=== PATIENT | male | born 1930 ===

== ENCOUNTER 2020-01-24 08:51 | Inpatient (IN) | payer MEDICARE ==
[2020-01-24 20:51] LABS: Hematocrit 29.2 % (35.5-45.6); Hemoglobin 9.9 gm/dl (11.8-15.2); Mean Corpuscular HGB Conc 34 % (32-34); Mean Corpuscular Volume 104 fl (84-94); Platelet Count 273 K/mm3 (140-440); Red Blood Count 2.82 M/mm3 (3.65-5.03); Red Cell Distribution Width 19.8 % (13.2-15.2)
[2020-01-24 21:06] LABS: Alanine Aminotransferase 11 units/L (7-56); Albumin 3.1 g/dL (3.9-5); BUN/Creatinine Ratio 23; Blood Urea Nitrogen 21 mg/dL (9-20); Calcium 8.6 mg/dL (8.4-10.2); Chol/HDL Ratio 2.26 %; HDL Cholesterol 42 mg/dL (40-59); Hemolysis Index 4; LDL Cholesterol,Direct 38 mg/dL (50-130)
[2020-01-24] MEDS: traZODone 50 MG TAB PO SCH (21:30)
[2020-01-24 23:13] LABS: Anisocytosis 1+; Band Neutrophils # (Manual) 0.1 K/mm3; Basophils % (Manual) 0 % (0.0-1.8); Platelet Estimate Consistent w Auto; Total Cells Counted 100
--- NOTE | 2020-01-25 08:29 | History and Physical Report ---
GP History & Physical - History of Present Illness Date of admission: 01/24/20 Date of Examination: 01/25/20 Reason for Admission: Danger to self History of Present Illness: Juan R Yates is an 89 y/o male patient who states he was admitted from [facility]. The patient is lying in bed awake. The patient is confused. He is pleasant. He doesn't seem forthcoming at times. He states to me, "I don't feel good. I broke my hip." He then says, "I'm in constant pain." When asking the patient did he know why he was here, he states, "well, I was in [facility] and they told me I needed to come here for a couple of days." When asking the patient was he suicid al now or at time of admit, he states, "I was making a joke about suicide. I was being funny." The then says, "but I guess nobody laughed." He denies past suicide attempts or ever seeing a psychiatrist. He denies feeling depressed at present. The patient also denies hallucinations, stating, "no, I don't hallucinate. I'm a realist." The patient denies any illicit drug use or nicotine use. He says he drinks "a beer every three weeks," although the nurse note states the patient admitted to being an alcoholic. Reason for continued inpatient treatment: Although denies, the patient expressed suicidal thoughts upon admission. Will continue to monitor the patient's progress and response to medication, to ensue a safe discharge. PAST PSYCHIATRIC HISTORY Diagnoses: Denies Suicide attempts or Self-harm behavior: Denies Prior psychiatric hospitalizations: Denies Substance Abuse history: Denies Previous psychiatric medications tried: Denies Outpatient treatment: Denies PAST MEDICAL HISTORY: unknown Family Psychiatric History: None reported or documented SOCIAL HISTORY Marital Status: Living Arrangements: With son Employment Status: Retired Access to guns/weapons: Denies Education: High school History of Abuse: Denies Legal History: Denies REVIEW OF SYSTEMS Constitutional: Negative for weight loss ENT: Negative for stridor Respiratory: Negative for cough or hemoptysis All other systems reviewed and are negative MENTAL STATUS EXAMINATION General Appearance: Dressed appropriately Behavior: calm, cooperative. Good eye contact. 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 Patient will be enrolled in individual and group therapeutic sessions and encouraged to attend. Patient will be provided with a safe and structured environment. Patient's physical health needs will be addressed by the Hospitalist. Hospitalist Consulted Labs including CBC, CMP, Lipid profile and Hemoglobin A1C ordered Social Assessment will be completed and the Construction Materials Tester will work with patient and family to ensure a suitable and safe disposition Medication adjustment will be made as clinically indicated - CIWA initiated - Zoloft 25mg po daily Usual Wellness Yazidi/Preservation: -Trazodone 50mg po qhs -Melatonin 5mg po qhs prn insomnia -Home meds restarted This certifies that Juan R Yates is an 89y/o male patient who was admitted for Major Depressive Disorder and will be treated for depression and suicidal ideation. The patient agreed on the treatment plan, understood the risk, benefit, alternative treatment, potential consequence of no treatment, and gave informed consent. Estimated period of time patient will need to remain in the hospital: [4] Plan for post-hospital care: [outpatient] Legal Status: Voluntary Reaction to Hospitalization: Accepting Medications and Allergies Allergies Allergy/AdvReac Type Severity Reaction Status Date / Time acetaminophen [From Tylenol] Allergy Unknown Verified 01/24/20 09:57 NSAIDS (Non-Steroidal Allergy Unknown Verified 01/24/20 09:58 Anti-Inflamma tramadol Allergy Unknown Verified 01/24/20 09:58 duloxetine [From Cymbalta] AdvReac Unknown Unverified 01/24/20 10:00 ezetimibe [From Zetia] AdvReac Unknown Unverified 01/24/20 10:00 gabapentin AdvReac Unknown Unverified 01/24/20 10:00 morphine AdvReac Unknown Unverified 01/24/20 10:00 simvastatin [From Zocor] AdvReac Unknown Unverified 01/24/20 10:00 Uyvwkyn-Iwq-Irm Reductase AdvReac Unknown Unverified 01/24/20 10:00 Inhibitor Home Medications Medication Instructions Recorded Confirmed Last Taken Type Dronabinol 7 drops PO Q4HR PRN 01/24/20 01/24/20 Unknown History LORazepam 1 mg PO Q4HR PRN 01/24/20 01/24/20 Unknown History Losartan/Hydrochlorothiazide 25 - 100 mg PO DAILY 01/24/20 01/24/20 Unknown History Metoprolol 50 mg PO DAILY 01/24/20 01/24/20 Unknown History Oxycodone 10 mg PO Q4HR PRN 01/24/20 01/24/20 Unknown History fentaNYL [Duragesic] 25 mcg TRANSDERMA Q24HR 01/24/20 01/24/20 01/23/20 History Active Meds: Active Medications Melatonin (Melatonin) 5 mg PO QHS PRN PRN Reason: Sleep Trazodone HCl (Desyrel) 50 mg PO QHS CARIN Last Admin: 01/24/20 21:30 Dose: 50 mg Documented by: Results - Results Labs/Vitals: Laboratory Last Values WBC 3.4 K/mm3 (4.5-11.0) L 01/24/20 20:44 RBC 2.82 M/mm3 (3.65-5.03) L 01/24/20 20:44 Hgb 9.9 gm/dl (11.8-15.2) L 01/24/20 20:44 Hct 29.2 % (35.5-45.6) L 01/24/20 20:44 MCV 104 fl (84-94) H 01/24/20 20:44 MCH 35 pg (28-32) H 01/24/20 20:44 MCHC 34 % (32-34) 01/24/20 20:44 RDW 19.8 % (13.2-15.2) H 01/24/20 20:44 Plt Count 273 K/mm3 (140-440) 01/24/20 20:44 [place] % (Auto) Trumpet Player 01/24/20 20:44 Add Manual Diff Complete 01/24/20 20:44 Total Counted 100 01/24/20 20:44 Seg Neuts % (Manual) 65.0 % (40.0-70.0) 01/24/20 20:44 Band Neutrophils % 2.0 % 01/24/20 20:44 Lymphocytes % (Manual) 20.0 % (13.4-35.0) 01/24/20 20:44 Reactive Lymphs % (Man) 0 % 01/24/20 20:44 Monocytes % (Manual) 10.0 % (0.0-7.3) H 01/24/20 20:44 Eosinophils % (Manual) 3.0 % (0.0-4.3) 01/24/20 20:44 Basophils % (Manual) 0 % (0.0-1.8) 01/24/20 20:44 Metamyelocytes % 0 % 01/24/20 20:44 Myelocytes % 0 % 01/24/20 20:44 Promyelocytes % 0 % 01/24/20 20:44 Blast Cells % 0 % 01/24/20 20:44 Nucleated RBC % Not Reportable 01/24/20 20:44 Seg Neutrophils # Man 2.2 K/mm3 (1.8-7.7) 01/24/20 20:44 Band Neutrophils # 0.1 K/mm3 01/24/20 20:44 Lymphocytes # (Manual) 0.7 K/mm3 (1.2-5.4) L 01/24/20 20:44 Abs React Lymphs (Man) 0.0 K/mm3 01/24/20 20:44 Monocytes # (Manual) 0.3 K/mm3 (0.0-0.8) 01/24/20 20:44 Eosinophils # (Manual) 0.1 K/mm3 (0.0-0.4) 01/24/20 20:44 Basophils # (Manual) 0.0 K/mm3 (0.0-0.1) 01/24/20 20:44 Metamyelocytes # 0.0 K/mm3 01/24/20 20:44 Myelocytes # 0.0 K/mm3 01/24/20 20:44 Promyelocytes # 0.0 K/mm3 01/24/20 20:44 Blast Cells # 0.0 K/mm3 01/24/20 20:44 WBC Morphology Not Reportable 01/24/20 20:44 Hypersegmented Neuts Not Reportable 01/24/20 20:44 Hyposegmented Neuts Not Reportable 01/24/20 20:44 Hypogranular Neuts Not Reportable 01/24/20 20:44 Smudge Cells Not Reportable 01/24/20 20:44 Toxic Granulation Not Reportable 01/24/20 20:44 Toxic Vacuolation Not Reportable 01/24/20 20:44 Dohle Bodies Not Reportable 01/24/20 20:44 Pelger-Huet Anomaly Not Reportable 01/24/20 20:44 Monika Rods Not Reportable 01/24/20 20:44 Platelet Estimate Consistent w auto 01/24/20 20:44 Clumped Platelets Not Reportable 01/24/20 20:44 Plt Clumps, EDTA Not Reportable 01/24/20 20:44 Large Platelets Not Reportable 01/24/20 20:44 Giant Platelets Not Reportable 01/24/20 20:44 Platelet Satelliting Not Reportable 01/24/20 20:44 Plt Morphology Comment Not Reportable 01/24/20 20:44 RBC Morphology Not Reportable 01/24/20 20:44 Dimorphic RBCs Not Reportable 01/24/20 20:44 Polychromasia Not Reportable 01/24/20 20:44 Hypochromasia Not Reportable 01/24/20 20:44 Poikilocytosis Not Reportable 01/24/20 20:44 Anisocytosis 1+ 01/24/20 20:44 Microcytosis Not Reportable 01/24/20 20:44 Macrocytosis Not Reportable 01/24/20 20:44 Spherocytes Not Reportable 01/24/20 20:44 Pappenheimer Bodies Not Reportable 01/24/20 20:44 Sickle Cells Not Reportable 01/24/20 20:44 Target Cells Not Reportable 01/24/20 20:44 Tear Drop Cells Not Reportable 01/24/20 20:44 Ovalocytes Not Reportable 01/24/20 20:44 Helmet Cells Not Reportable 01/24/20 20:44 [place] Bodies Not Reportable 01/24/20 20:44 [place] Rings Not Reportable 01/24/20 20:44 [place] Cells Not Reportable 01/24/20 20:44 Bite Cells Not Reportable 01/24/20 20:44 Crenated Cell Not Reportable 01/24/20 20:44 Elliptocytes Not Reportable 01/24/20 20:44 Acanthocytes (Spur) Not Reportable 01/24/20 20:44 Rouleaux Not Reportable 01/24/20 20:44 Hemoglobin C Crystals Not Reportable 01/24/20 20:44 Schistocytes Not Reportable 01/24/20 20:44 Malaria parasites Not Reportable 01/24/20 20:44 Chema Bodies Not Reportable 01/24/20 20:44 Hem Pathologist Commnt No 01/24/20 20:44 Sodium 136 mmol/L (137-145) L 01/24/20 20:44 Potassium 3.8 mmol/L (3.6-5.0) 01/24/20 20:44 Chloride 99.7 mmol/L (98-107) 01/24/20 20:44 Carbon Dioxide 26 mmol/L (22-30) 01/24/20 20:44 Anion Gap 14 mmol/L 01/24/20 20:44 BUN 21 mg/dL (9-20) H 01/24/20 20:44 Creatinine 0.9 mg/dL (0.8-1.5) 01/24/20 20:44 Estimated GFR > 60 ml/min 01/24/20 20:44 BUN/Creatinine Ratio 23 % 01/24/20 20:44 Glucose 132 mg/dL (75-100) H 01/24/20 20:44 POC Glucose 148 (70-105) H 01/24/20 20:50 Hemoglobin A1c 4.6 % (4-6) 01/24/20 20:44 Calcium 8.6 mg/dL (8.4-10.2) 01/24/20 20:44 Total Bilirubin 0.50 mg/dL (0.1-1.2) 01/24/20 20:44 AST 19 units/L (5-40) 01/24/20 20:44 ALT 11 units/L (7-56) 01/24/20 20:44 Alkaline Phosphatase 53 units/L (35-129) 01/24/20 20:44 Total Protein 5.0 g/dL (6.3-8.2) L 01/24/20 20:44 Albumin 3.1 g/dL (3.9-5) L 01/24/20 20:44 Albumin/Globulin Ratio 1.6 % 01/24/20 20:44 Triglycerides 69 mg/dL (2-149) 01/24/20 20:44 Cholesterol 95 mg/dL (50-199) 01/24/20 20:44 LDL Cholesterol Direct 38 mg/dL (50-130) L 01/24/20 20:44 HDL Cholesterol 42 mg/dL (40-59) 01/24/20 20:44 Cholesterol/HDL Ratio 2.26 % 01/24/20 20:44 TSH 2.250 mlU/mL (0.270-4.200) 01/24/20 20:44 Last Vital Signs Temp 97.6 F 01/24/20 22:00 Pulse 63 01/24/20 22:00 Resp 20 01/24/20 22:00 BP 124/59 01/24/20 22:00 Pulse Ox 98 01/24/20 22:00 Physical Examination - Constitutional Vitals: Vital Signs Temp Pulse Resp BP Pulse Ox 97.6 F 63 20 124/59 98 01/24/20 22:00 01/24/20 22:00 01/24/20 22:00 01/24/20 22:00 01/24/20 22:00 Temperature -Last 24 Hours Temperature 97.6 F Temperature 97.4 F Mental Status Exam - Vital signs Last Vital Signs Temp 97.6 F 01/24/20 22:00 Pulse 63 01/24/20 22:00 Resp 20 01/24/20 22:00 BP 124/59 01/24/20 22:00 Pulse Ox 98 01/24/20 22:00 Physician Certification - Certification Statement Physician Certification Statement: This is an acknowledgement statement that JUAN R YATES is a 89 year old M who requires inpatient psychiatric admission for treatment which could reasonably be expected to improve the patient's condition for Estimated period of time patient will need to remain in the hospital: [ ] Plan for post-hospital care: [ ]
[2020-01-25] MEDS ORDERED: DRONABINOL PO PRN (08:37)
[2020-01-25] MEDS ORDERED: LORAZEPAM 1 MG PO PRN (08:37)
[2020-01-25] MEDS ORDERED: chlordiazePOXIDE 25 MG CAP PO PRN ×2 (08:44)
[2020-01-25] MEDS: METOPROLOL TARTRATE 50 MG TAB PO SCH (10:06)
[2020-01-25] MEDS: SERTRALINE 25 MG TAB PO SCH (10:09)
[2020-01-25] MEDS: LORazepam 1 MG TAB PO PRN (13:43)
[2020-01-25] MEDS: MELATONIN 5 MG TAB PO PRN (21:07)
[2020-01-25] MEDS: traZODone 50 MG TAB PO SCH (21:07)
[2020-01-26 07:59] LABS: Bilirubin,Urine NEG (Negative); Blood,Urine SM (Negative); Calcium Oxalate Crystals,Urine 3+; Color,Urine Yellow (Yellow); Mucus,Urine FEW /HPF; Protein,Urine <15 mg/dL mg/dL (Negative); Urobilinogen,Urine < 2.0 mg/dL (<2.0)
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
[2020-01-26] MEDS: METOPROLOL TARTRATE 50 MG TAB PO SCH (10:21)
[2020-01-26] MEDS: SERTRALINE 25 MG TAB PO SCH (10:21)
[2020-01-26] MEDS: risperiDONE 0.25 MG TAB PO SCH ×2 (10:21→21:03)
[2020-01-26] MEDS ORDERED: OXYCODONE 10 MG PO PRN (15:24)
--- NOTE | 2020-01-26 15:24 | Consultation ---
History of Present Illness - Reason for Consult Consult date: 01/26/20 Medical consult Requesting physician: ADAL HLAL - History of Present Illness 89-year-old male patient with significant past medical history of alcohol abuse status post fall hip fracture status post ORIF, anemia of chronic disease, BPH, hypertension, myelodysplastic syndrome, sleep apnea, psych disorders was admitted to psych unit with danger to self and severe depression Hospital service was consulted for medical consult, At the time of my evaluation patient was minimally communicative Complains of some hip pain, proper history was not available Past History Past Medical History: anemia, arthritis, hypertension, other (BPH) Past Surgical History: Other (Hip fracture status post ORIF) Social history: alcohol abuse, full code. denies: smoking Family history: no significant family history Medications and Allergies Allergies Allergy/AdvReac Type Severity Reaction Status Date / Time acetaminophen [From Tylenol] Allergy Unknown Verified 01/24/20 09:57 NSAIDS (Non-Steroidal Allergy Unknown Verified 01/24/20 09:58 Anti-Inflamma tramadol Allergy Unknown Verified 01/24/20 09:58 duloxetine [From Cymbalta] AdvReac Unknown Unverified 01/24/20 10:00 ezetimibe [From Zetia] AdvReac Unknown Unverified 01/24/20 10:00 gabapentin AdvReac Unknown Unverified 01/24/20 10:00 morphine AdvReac Unknown Unverified 01/24/20 10:00 simvastatin [From Zocor] AdvReac Unknown Unverified 01/24/20 10:00 Nhgpgix-Tqy-Thy Reductase AdvReac Unknown Unverified 01/24/20 10:00 Inhibitor Home Medications Medication Instructions Recorded Confirmed Last Taken Type Dronabinol 7 drops PO Q4HR PRN 01/24/20 01/24/20 Unknown History LORazepam 1 mg PO Q4HR PRN 01/24/20 01/24/20 Unknown History Losartan/Hydrochlorothiazide 25 - 100 mg PO DAILY 01/24/20 01/24/20 Unknown Hi story Metoprolol 50 mg PO DAILY 01/24/20 01/24/20 Unknown History Oxycodone 10 mg PO Q4HR PRN 01/24/20 01/24/20 Unknown History fentaNYL [Duragesic] 25 mcg TRANSDERMA Q24HR 01/24/20 01/24/2001/22/20 History Active Meds: Active Medications Chlordiazepoxide HCl (Librium) 50 mg PO Q1HR PRN PRN Reason: CIWA-Ar 8-15 Chlordiazepoxide HCl (Librium) 100 mg PO Q1HR PRN PRN Reason: CIWA-Ar 16-25 Lorazepam (Ativan) 1 mg PO Q4H PRN PRN Reason: Anxiety Last Admin: 01/25/20 13:43 Dose: 1 mg Documented by: Melatonin (Melatonin) 5 mg PO QHS PRN PRN Reason: Sleep Last Admin: 01/25/20 21:07 Dose: 5 mg Documented by: Metoprolol Tartrate (Metoprolol) 50 mg PO DAILY [facility] Last Admin: 01/26/20 10:21 Dose: 50 mg Documented by: Miscellaneous Medication (Dronabinol) 7 drops PO Q4HR PRN PRN Reason: nausea/vomiting Risperidone (Risperdal) 0.25 mg PO BID [facility] Last Admin: 01/26/20 10:21 Dose: 0.25 mg Documented by: Sertraline HCl (Zoloft) 25 mg PO QDAY [facility] Last Admin: 01/26/20 10:21 Dose: 25 mg Documented by: Trazodone HCl (Desyrel) 50 mg PO QHS [facility] Last Admin: 01/25/20 21:07 Dose: 50 mg Documented by: Review of Systems Constitutional: weakness, no weight loss, no weight gain Ears, nose, mouth and throat: no nasal congestion, no nasal discharge Cardiovascular: no chest pain, no orthopnea Respiratory: no cough, no shortness of breath Gastrointestinal: no abdominal pain, no nausea, no vomiting Genitourinary Male: no dysuria, no hematuria Musculoskeletal: myalgias, frequent falls, fractures, arthritis Integumentary: no rash, no lesions Neurological: weakness Psychiatric: depression, no anxiety Endocrine: no cold intolerance, no heat intolerance Hematologic/Lymphatic: no easy bruising, no easy bleeding Allergic/Immunologic: no urticaria, no allergic rhinitis Exam - Constitutional Vitals: Temp Pulse Resp BP Pulse Ox 98.0 F 69 18 128/55 95 01/26/20 09:40 01/26/20 10:21 01/26/20 09:40 01/26/20 10:21 01/26/20 09:40 General appearance: Present: no acute distress, well-nourished, other (Minimally communicative) - EENT Eyes: Present: PERRL, EOM intact - Neck Neck: Present: supple, normal ROM - Respiratory Respiratory effort: normal Respiratory: bilateral: diminished, negative: rales, rhonchi, wheezing - Cardiovascular Rhythm: regular Heart Sounds: Present: S1 & S2 - Extremities Extremities: abnormal (Bilateral knee arthritis) Extremity abnormal: other (Surgery right hip) - Abdominal General gastrointestinal: Present: soft, non-tender, non-distended, normal bowel sounds - Integumentary Integumentary: Present: clear, warm - Musculoskeletal Musculoskeletal: strength equal bilaterally, generalized weakness - Psychiatric Psychiatric: appropriate mood/affect, cooperative - Neurologic Neurologic: moves all extremities Results - Labs CBC & Chem 7: 01/24/20 20:44 01/24/20 20:44 Assessment and Plan --Danger to self/severe depression/psych disorder; Management per psych --Status post fall/hip fracture/status post right ORIF; Fall precautions, pain management, PT OT --Hypertension; moderate control Resume home antihypertensives and PRN medications --History of BPH supportive care --Dyslipidemia; continue statin --DVT prophylaxis; SCDs while at rest --Full CODE STATUS Closely monitor the patient and adjust the management as needed Plan of care reviewed with the patient and his nurse Thank you for this consultation We will follow the patient along with you as needed
[2020-01-26] MEDS: oxyCODONE 5 MG TAB PO PRN (20:52)
[2020-01-26] MEDS: traZODone 50 MG TAB PO SCH (21:03)
[2020-01-26] MEDS: MELATONIN 5 MG TAB PO PRN (21:03)
--- NOTE | 2020-01-27 07:46 | Progress Note ---
Subjective Date of service: 01/27/20 Principal diagnosis: Major Depressive Disorder Subjective Comment: The patient's medical record was reviewed and the patient's progress was discussed with the nursing staff. The nurse note states the patient is alert and oriented to person and place, able to make needs known. The patient does not want to be repositioned. The patient stated that he is comfortable laying on his back, c/o hip pain of 7/10, Roxicodone 10mg po given at 2051 with good effect, m elatonin 5mg po given prn for sleep, medication compliant, good appetite, non ambulatory, denies SI/HI, denies a/v/h, no distress noted. During my interview with the patient he was lying in bed awake. He a/o x 2. His thoughts are clearer today, and he doesn't appear paranoid. He is calm and cooperative. The patient says he feels "alright, I'm just hurting," when asked. He then places his hand over his right hip. He says he slept "well." The patient laughs when asked about SI/HI and says "no, I don't want to hurt myself." He denies hallucinations of any kind. Reason for continued inpatient treatment: The patient has improved, will continue to stabilize and plan for a safe discharge home. The family have plans to place the patient in a SNF because they are unable to care for him at home. REVIEW OF SYSTEMS Constitutional: Negative for weight loss ENT: Negative for stridor Respiratory: Negative for cough or hemoptysis All other systems reviewed and are negative MENTAL STATUS EXAMINATION General Appearance: Dressed appropriately Behavior: calm, cooperative. Good eye contact. 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 Patient will be enrolled in individual and group therapeutic sessions and encouraged to attend. Patient will be provided with a safe and structured environment. Patient's physical health needs will be addressed by the Hospitalist. Hospitalist Consulted Labs including CBC, CMP, Lipid profile and Hemoglobin A1C ordered Social Assessment will be completed and the Truck Cleaner will work with patient and family to ensure a suitable and safe disposition Medication adjustment will be made as clinically indicated -Start Risperidone 0.25mg po BID yesterday - No changes today The patient agreed on the treatment plan, understood the risk, benefit, alternative treatment, potential consequence of no treatment, and gave informed consent. Estimated period of time patient will need to remain in the hospital: [2] Plan for post-hospital care: [outpatient] Medications and Allergies Allergies Allergy/AdvReac Type Severity Reaction Status Date / Time acetaminophen [From Tylenol] Allergy Unknown Verified 01/24/20 09:57 NSAIDS (Non-Steroidal Allergy Unknown Verified 01/24/20 09:58 Anti-Inflamma tramadol Allergy Unknown Verified 01/24/20 09:58 duloxetine [From Cymbalta] AdvReac Unknown Unverified 01/24/20 10:00 ezetimibe [From Zetia] AdvReac Unknown Unverified 01/24/20 10:00 gabapentin AdvReac Unknown Unverified 01/24/20 10:00 morphine AdvReac Unknown Unverified 01/24/20 10:00 simvastatin [From Zocor] AdvReac Unknown Unverified 01/24/20 10:00 Fipnpjq-Mpz-Nhq Reductase AdvReac Unknown Unverified 01/24/20 10:00 Inhibitor Home Medications Medication Instructions Recorded Confirmed Last Taken Type Dronabinol 7 drops PO Q4HR PRN 01/24/20 01/24/20 Unknown History LORazepam 1 mg PO Q4HR PRN 01/24/20 01/24/20 Unknown History Losartan/Hydrochlorothiazide 25 - 100 mg PO DAILY 01/24/20 01/24/20 Unknown History Metoprolol 50 mg PO DAILY 01/24/20 01/24/20 Unknown History Oxycodone 10 mg PO Q4HR PRN 01/24/20 01/24/20 Unknown History fentaNYL [Duragesic] 25 mcg TRANSDERMA Q24HR 01/24/20 01/24/20 01/23/20 History Active Meds: Active Medications Chlordiazepoxide HCl (Librium) 50 mg PO Q1HR PRN PRN Reason: CIWA-Ar 8-15 Chlordiazepoxide HCl (Librium) 100 mg PO Q1HR PRN PRN Reason: CIWA-Ar 16-25 Lorazepam (Ativan) 1 mg PO Q4H PRN PRN Reason: Anxiety Last Admin: 01/25/20 13:43 Dose: 1 mg Documented by: Melatonin (Melatonin) 5 mg PO QHS PRN PRN Reason: Sleep Last Admin: 01/26/20 21:03 Dose: 5 mg Documented by: Metoprolol Tartrate (Metoprolol) 50 mg PO DAILY [facility] Last Admin: 01/26/20 10:21 Dose: 50 mg Documented by: Miscellaneous Medication (Dronabinol) 7 drops PO Q4HR PRN PRN Reason: nausea/vomiting Oxycodone HCl (Roxicodone) 10 mg PO Q4H PRN PRN Reason: Pain, Moderate (4-6) Last Admin: 01/26/20 20:52 Dose: 10 mg Documented by: Risperidone (Risperdal) 0.25 mg PO BID [facility] Last Admin: 01/26/20 21:03 Dose: 0.25 mg Documented by: Sertraline HCl (Zoloft) 25 mg PO QDAY [facility] Last Admin: 01/26/20 10:21 Dose: 25 mg Documented by: Trazodone HCl (Desyrel) 50 mg PO QHS [facility] Last Admin: 01/26/20 21:03 Dose: 50 mg Documented by: Results - Results Labs/Vitals: Laboratory Last Values WBC 3.4 K/mm3 (4.5-11.0) L 01/24/20 20:44 RBC 2.82 M/mm3 (3.65-5.03) L 01/24/20 20:44 Hgb 9.9 gm/dl (11.8-15.2) L 01/24/20 20:44 Hct 29.2 % (35.5-45.6) L 01/24/20 20:44 MCV 104 fl (84-94) H 01/24/20 20:44 MCH 35 pg (28-32) H 01/24/20 20:44 MCHC 34 % (32-34) 01/24/20 20:44 RDW 19.8 % (13.2-15.2) H 01/24/20 20:44 Plt Count 273 K/mm3 (140-440) 01/24/20 20:44 Ware % (Auto) Eyelet Maker 01/24/20 20:44 Add Manual Diff Complete 01/24/20 20:44 Total Counted 100 01/24/20 20:44 Seg Neuts % (Manual) 65.0 % (40.0-70.0) 01/24/20 20:44 Band Neutrophils % 2.0 % 01/24/20 20:44 Lymphocytes % (Manual) 20.0 % (13.4-35.0) 01/24/20 20:44 Reactive Lymphs % (Man) 0 % 01/24/20 20:44 Monocytes % (Manual) 10.0 % (0.0-7.3) H 01/24/20 20:44 Eosinophils % (Manual) 3.0 % (0.0-4.3) 01/24/20 20:44 Basophils % (Manual) 0 % (0.0-1.8) 01/24/20 20:44 Metamyelocytes % 0 % 01/24/20 20:44 Myelocytes % 0 % 01/24/20 20:44 Promyelocytes % 0 % 01/24/20 20:44 Blast Cells % 0 % 01/24/20 20:44 Nucleated RBC % Not Reportable 01/24/20 20:44 Seg Neutrophils # Man 2.2 K/mm3 (1.8-7.7) 01/24/20 20:44 Band Neutrophils # 0.1 K/mm3 01/24/20 20:44 Lymphocytes # (Manual) 0.7 K/mm3 (1.2-5.4) L 01/24/20 20:44 Abs React Lymphs (Man) 0.0 K/mm3 01/24/20 20:44 Monocytes # (Manual) 0.3 K/mm3 (0.0-0.8) 01/24/20 20:44 Eosinophils # (Manual) 0.1 K/mm3 (0.0-0.4) 01/24/20 20:44 Basophils # (Manual) 0.0 K/mm3 (0.0-0.1) 01/24/20 20:44 Metamyelocytes # 0.0 K/mm3 01/24/20 20:44 Myelocytes # 0.0 K/mm3 01/24/20 20:44 Promyelocytes # 0.0 K/mm3 01/24/20 20:44 Blast Cells # 0.0 K/mm3 01/24/20 20:44 WBC Morphology Not Reportable 01/24/20 20:44 Hypersegmented Neuts Not Reportable 01/24/20 20:44 Hyposegmented Neuts Not Reportable 01/24/20 20:44 Hypogranular Neuts Not Reportable 01/24/20 20:44 Smudge Cells Not Reportable 01/24/20 20:44 Toxic Granulation Not Reportable 01/24/20 20:44 Toxic Vacuolation Not Reportable 01/24/20 20:44 Dohle Bodies Not Reportable 01/24/20 20:44 Pelger-Huet Anomaly Not Reportable 01/24/20 20:44 Monika Rods Not Reportable 01/24/20 20:44 Platelet Estimate Consistent w auto 01/24/20 20:44 Clumped Platelets Not Reportable 01/24/20 20:44 Plt Clumps, EDTA Not Reportable 01/24/20 20:44 Large Platelets Not Reportable 01/24/20 20:44 Giant Platelets Not Reportable 01/24/20 20:44 Platelet Satelliting Not Reportable 01/24/20 20:44 Plt Morphology Comment Not Reportable 01/24/20 20:44 RBC Morphology Not Reportable 01/24/20 20:44 Dimorphic RBCs Not Reportable 01/24/20 20:44 Polychromasia Not Reportable 01/24/20 20:44 Hypochromasia Not Reportable 01/24/20 20:44 Poikilocytosis Not Reportable 01/24/20 20:44 Anisocytosis 1+ 01/24/20 20:44 Microcytosis Not Reportable 01/24/20 20:44 Macrocytosis Not Reportable 01/24/20 20:44 Spherocytes Not Reportable 01/24/20 20:44 Pappenheimer Bodies Not Reportable 01/24/20 20:44 Sickle Cells Not Reportable 01/24/20 20:44 Target Cells Not Reportable 01/24/20 20:44 Tear Drop Cells Not Reportable 01/24/20 20:44 Ovalocytes Not Reportable 01/24/20 20:44 Helmet Cells Not Reportable 01/24/20 20:44 [place] Bodies Not Reportable 01/24/20 20:44 [place] Rings Not Reportable 01/24/20 20:44 [place] Cells Not Reportable 01/24/20 20:44 Bite Cells Not Reportable 01/24/20 20:44 Crenated Cell Not Reportable 01/24/20 20:44 Elliptocytes Not Reportable 01/24/20 20:44 Acanthocytes (Spur) Not Reportable 01/24/20 20:44 Rouleaux Not Reportable 01/24/20 20:44 Hemoglobin C Crystals Not Reportable 01/24/20 20:44 Schistocytes Not Reportable 01/24/20 20:44 Malaria parasites Not Reportable 01/24/20 20:44 Chema Bodies Not Reportable 01/24/20 20:44 Hem Pathologist Commnt No 01/24/20 20:44 Sodium 136 mmol/L (137-145) L 01/24/20 20:44 Potassium 3.8 mmol/L (3.6-5.0) 01/24/20 20:44 Chloride 99.7 mmol/L (98-107) 01/24/20 20:44 Carbon Dioxide 26 mmol/L (22-30) 01/24/20 20:44 Anion Gap 14 mmol/L 01/24/20 20:44 BUN 21 mg/dL (9-20) H 01/24/20 20:44 Creatinine 0.9 mg/dL (0.8-1.5) 01/24/20 20:44 Estimated GFR > 60 ml/min 01/24/20 20:44 BUN/Creatinine Ratio 23 % 01/24/20 20:44 Glucose 132 mg/dL (75-100) H 01/24/20 20:44 POC Glucose 148 (70-105) H 01/24/20 20:50 Hemoglobin A1c 4.6 % (4-6) 01/24/20 20:44 Calcium 8.6 mg/dL (8.4-10.2) 01/24/20 20:44 Total Bilirubin 0.50 mg/dL (0.1-1.2) 01/24/20 20:44 AST 19 units/L (5-40) 01/24/20 20:44 ALT 11 units/L (7-56) 01/24/20 20:44 Alkaline Phosphatase 53 units/L (35-129) 01/24/20 20:44 Total Protein 5.0 g/dL (6.3-8.2) L 01/24/20 20:44 Albumin 3.1 g/dL (3.9-5) L 01/24/20 20:44 Albumin/Globulin Ratio 1.6 % 01/24/20 20:44 Triglycerides 69 mg/dL (2-149) 01/24/20 20:44 Cholesterol 95 mg/dL (50-199) 01/24/20 20:44 LDL Cholesterol Direct 38 mg/dL (50-130) L 01/24/20 20:44 HDL Cholesterol 42 mg/dL (40-59) 01/24/20 20:44 Cholesterol/HDL Ratio 2.26 % 01/24/20 20:44 TSH 2.250 mlU/mL (0.270-4.200) 01/24/20 20:44 Urine Color Yellow (Yellow) 01/26/20 07:15 Urine Turbidity Clear (Clear) 01/26/20 07:15 Urine pH 6.0 (5.0-7.0) 01/26/20 07:15 Ur Specific [place] 1.014 (1.003-1.030) 01/26/20 07:15 Urine Protein <15 mg/dl mg/dL (Negative) 01/26/20 07:15 Urine Glucose (UA) Neg mg/dL (Negative) 01/26/20 07:15 Urine Ketones Neg mg/dL (Negative) 01/26/20 07:15 Urine Blood Sm (Negative) 01/26/20 07:15 Urine Nitrite Neg (Negative) 01/26/20 07:15 Urine Bilirubin Neg (Negative) 01/26/20 07:15 Urine Urobilinogen < 2.0 mg/dL (<2.0) 01/26/20 07:15 Ur Leukocyte Esterase Neg (Negative) 01/26/20 07:15 Urine WBC (Auto) 1.0 /HPF (0.0-6.0) 01/26/20 07:15 Urine RBC (Auto) 4.0 /HPF (0.0-6.0) 01/26/20 07:15 U Epithel Cells (Auto) < 1.0 /HPF (0-13.0) 01/26/20 07:15 Calcium Oxalate Crystal 3+ 01/26/20 07:15 Urine Mucus Few /HPF 01/26/20 07:15 Last Vital Signs Temp 98.1 F 01/27/20 06:58 Pulse 68 01/27/20 06:58 Resp 18 01/27/20 06:58 BP 126/63 01/27/20 06:58 Pulse Ox 95 01/27/20 06:58
[2020-01-27] MEDS: METOPROLOL TARTRATE 50 MG TAB PO SCH (09:53)
[2020-01-27] MEDS: oxyCODONE 5 MG TAB PO PRN ×2 (09:53→13:16)
[2020-01-27] MEDS: risperiDONE 0.25 MG TAB PO SCH ×2 (09:54→22:07)
[2020-01-27] MEDS: SERTRALINE 25 MG TAB PO SCH (09:54)
[2020-01-27] MEDS: LORazepam 1 MG TAB PO PRN (17:23)
[2020-01-27] MEDS: traZODone 50 MG TAB PO SCH (22:07)
--- NOTE | 2020-01-28 08:21 | Progress Note ---
Subjective Date of service: 01/28/20 Principal diagnosis: Major Depressive Disorder Subjective Comment: The patient's medical record was reviewed and the patient's progress was discussed with the nursing staff. During my interview with the patient he was lying in bed awake. He a/o x 2. The patient says he's "tired," but states he feels "fine." The patient denies SI/HI, stating, "no, I don't want to ." He then says, "why do people keep accusing me of that." He denies hallucinations of any kind. Reason for continued inpatient treatment: The patient has improved, but is unable to care for himself. The family have plans to place the patient in a SNF because they are unable to care for him at home. Will plan for a safe discharge. REVIEW OF SYSTEMS Constitutional: Negative for weight loss ENT: Negative for stridor Respiratory: Negative for cough or hemoptysis All other systems reviewed and are negative MENTAL STATUS EXAMINATION General Appearance: Dressed appropriately Behavior: calm, cooperative. Good eye contact. 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 Patient will be enrolled in individual and group therapeutic sessions and encouraged to attend. Patient will be provided with a safe and structured environment. Patient's physical health needs will be addressed by the Hospitalist. Hospitalist Consulted Labs including CBC, CMP, Lipid profile and Hemoglobin A1C ordered Social Assessment will be completed and the Bookkeeper Assistant will work with patient and family to ensure a suitable and safe disposition Medication adjustment will be made as clinically indicated - No changes today The patient agreed on the treatment plan, understood the risk, benefit, alternative treatment, potential consequence of no treatment, and gave informed consent. Estimated period of time patient will need to remain in the hospital: [] Plan for post-hospital care: [outpatient] Medications and Allergies Allergies Allergy/AdvReac Type Severity Reaction Status Date / Time acetaminophen [From Tylenol] Allergy Unknown Verified 01/24/20 09:57 NSAIDS (Non-Steroidal Allergy Unknown Verified 01/24/20 09:58 Anti-Inflamma tramadol Allergy Unknown Verified 01/24/20 09:58 duloxetine [From Cymbalta] AdvReac Unknown Unverified 01/24/20 10:00 ezetimibe [From Zetia] AdvReac Unknown Unverified 01/24/20 10:00 gabapentin AdvReac Unknown Unverified 01/24/20 10:00 morphine AdvReac Unknown Unverified 01/24/20 10:00 simvastatin [From Zocor] AdvReac Unknown Unverified 01/24/20 10:00 Udtvexn-Kay-Eux Reductase AdvReac Unknown Unverified 01/24/20 10:00 Inhibitor Home Medications Medication Instructions Recorded Confirmed Last Taken Type Dronabinol 7 drops PO Q4HR PRN 01/24/20 01/24/20 Unknown History LORazepam 1 mg PO Q4HR PRN 01/24/20 01/24/20 Unknown History Losartan/Hydrochlorothiazide 25 - 100 mg PO DAILY 01/24/20 01/24/20 Unknown History Metoprolol 50 mg PO DAILY 01/24/20 01/24/20 Unknown History Oxycodone 10 mg PO Q4HR PRN 01/24/20 01/24/20 Unknown History fentaNYL [Duragesic] 25 mcg TRANSDERMA Q24HR 01/24/20 01/24/20 01/23/20 History Active Meds: Active Medications Chlordiazepoxide HCl (Librium) 50 mg PO Q1HR PRN PRN Reason: CIWA-Ar 8-15 Chlordiazepoxide HCl (Librium) 100 mg PO Q1HR PRN PRN Reason: CIWA-Ar 16-25 Lorazepam (Ativan) 1 mg PO Q4H PRN PRN Reason: Anxiety Last Admin: 01/27/20 17:23 Dose: 1 mg Documented by: Melatonin (Melatonin) 5 mg PO QHS PRN PRN Reason: Sleep Last Admin: 01/26/20 21:03 Dose: 5 mg Documented by: Metoprolol Tartrate (Metoprolol) 50 mg PO DAILY CARIN Last Admin: 01/27/20 09:53 Dose: 50 mg Documented by: Oxycodone HCl (Roxicodone) 10 mg PO Q4H PRN PRN Reason: Pain, Moderate (4-6) Last Admin: 01/27/20 13:16 Dose: 10 mg Documented by: Risperidone (Risperdal) 0.25 mg PO BID [facility] Last Admin: 01/27/20 22:07 Dose: 0.25 mg Documented by: Sertraline HCl (Zoloft) 25 mg PO QDAY [facility] Last Admin: 01/27/20 09:54 Dose: 25 mg Documented by: Trazodone HCl (Desyrel) 50 mg PO QHS [facility] Last Admin: 01/27/20 22:07 Dose: 50 mg Documented by: Results - Results Labs/Vitals: Laboratory Last Values WBC 3.4 K/mm3 (4.5-11.0) L 01/24/20 20:44 RBC 2.82 M/mm3 (3.65-5.03) L 01/24/20 20:44 Hgb 9.9 gm/dl (11.8-15.2) L 01/24/20 20:44 Hct 29.2 % (35.5-45.6) L 01/24/20 20:44 MCV 104 fl (84-94) H 01/24/20 20:44 MCH 35 pg (28-32) H 01/24/20 20:44 MCHC 34 % (32-34) 01/24/20 20:44 RDW 19.8 % (13.2-15.2) H 01/24/20 20:44 Plt Count 273 K/mm3 (140-440) 01/24/20 20:44 [place] % (Auto) [facility] 01/24/20 20:44 Add Manual Diff Complete 01/24/20 20:44 Total Counted 100 01/24/20 20:44 Seg Neuts % (Manual) 65.0 % (40.0-70.0) 01/24/20 20:44 Band Neutrophils % 2.0 % 01/24/20 20:44 Lymphocytes % (Manual) 20.0 % (13.4-35.0) 01/24/20 20:44 Reactive Lymphs % (Man) 0 % 01/24/20 20:44 Monocytes % (Manual) 10.0 % (0.0-7.3) H 01/24/20 20:44 Eosinophils % (Manual) 3.0 % (0.0-4.3) 01/24/20 20:44 Basophils % (Manual) 0 % (0.0-1.8) 01/24/20 20:44 Metamyelocytes % 0 % 01/24/20 20:44 Myelocytes % 0 % 01/24/20 20:44 Promyelocytes % 0 % 01/24/20 20:44 Blast Cells % 0 % 01/24/20 20:44 Nucleated RBC % Not Reportable 01/24/20 20:44 Seg Neutrophils # Man 2.2 K/mm3 (1.8-7.7) 01/24/20 20:44 Band Neutrophils # 0.1 K/mm3 01/24/20 20:44 Lymphocytes # (Manual) 0.7 K/mm3 (1.2-5.4) L 01/24/20 20:44 Abs React Lymphs (Man) 0.0 K/mm3 01/24/20 20:44 Monocytes # (Manual) 0.3 K/mm3 (0.0-0.8) 01/24/20 20:44 Eosinophils # (Manual) 0.1 K/mm3 (0.0-0.4) 01/24/20 20:44 Basophils # (Manual) 0.0 K/mm3 (0.0-0.1) 01/24/20 20:44 Metamyelocytes # 0.0 K/mm3 01/24/20 20:44 Myelocytes # 0.0 K/mm3 01/24/20 20:44 Promyelocytes # 0.0 K/mm3 01/24/20 20:44 Blast Cells # 0.0 K/mm3 01/24/20 20:44 WBC Morphology Not Reportable 01/24/20 20:44 Hypersegmented Neuts Not Reportable 01/24/20 20:44 Hyposegmented Neuts Not Reportable 01/24/20 20:44 Hypogranular Neuts Not Reportable 01/24/20 20:44 Smudge Cells Not Reportable 01/24/20 20:44 Toxic Granulation Not Reportable 01/24/20 20:44 Toxic Vacuolation Not Reportable 01/24/20 20:44 Dohle Bodies Not Reportable 01/24/20 20:44 Pelger-Huet Anomaly Not Reportable 01/24/20 20:44 Monika Rods Not Reportable 01/24/20 20:44 Platelet Estimate Consistent w auto 01/24/20 20:44 Clumped Platelets Not Reportable 01/24/20 20:44 Plt Clumps, EDTA Not Reportable 01/24/20 20:44 Large Platelets Not Reportable 01/24/20 20:44 Giant Platelets Not Reportable 01/24/20 20:44 Platelet Satelliting Not Reportable 01/24/20 20:44 Plt Morphology Comment Not Reportable 01/24/20 20:44 RBC Morphology Not Reportable 01/24/20 20:44 Dimorphic RBCs Not Reportable 01/24/20 20:44 Polychromasia Not Reportable 01/24/20 20:44 Hypochromasia Not Reportable 01/24/20 20:44 Poikilocytosis Not Reportable 01/24/20 20:44 Anisocytosis 1+ 01/24/20 20:44 Microcytosis Not Reportable 01/24/20 20:44 Macrocytosis Not Reportable 01/24/20 20:44 Spherocytes Not Reportable 01/24/20 20:44 Pappenheimer Bodies Not Reportable 01/24/20 20:44 Sickle Cells Not Reportable 01/24/20 20:44 Target Cells Not Reportable 01/24/20 20:44 Tear Drop Cells Not Reportable 01/24/20 20:44 Ovalocytes Not Reportable 01/24/20 20:44 Helmet Cells Not Reportable 01/24/20 20:44 [place] Bodies Not Reportable 01/24/20 20:44 [place] Rings Not Reportable 01/24/20 20:44 [place] Cells Not Reportable 01/24/20 20:44 Bite Cells Not Reportable 01/24/20 20:44 Crenated Cell Not Reportable 01/24/20 20:44 Elliptocytes Not Reportable 01/24/20 20:44 Acanthocytes (Spur) Not Reportable 01/24/20 20:44 Rouleaux Not Reportable 01/24/20 20:44 Hemoglobin C Crystals Not Reportable 01/24/20 20:44 Schistocytes Not Reportable 01/24/20 20:44 Malaria parasites Not Reportable 01/24/20 20:44 Chema Bodies Not Reportable 01/24/20 20:44 Hem Pathologist Commnt No 01/24/20 20:44 Sodium 136 mmol/L (137-145) L 01/24/20 20:44 Potassium 3.8 mmol/L (3.6-5.0) 01/24/20 20:44 Chloride 99.7 mmol/L (98-107) 01/24/20 20:44 Carbon Dioxide 26 mmol/L (22-30) 01/24/20 20:44 Anion Gap 14 mmol/L 01/24/20 20:44 BUN 21 mg/dL (9-20) H 01/24/20 20:44 Creatinine 0.9 mg/dL (0.8-1.5) 01/24/20 20:44 Estimated GFR > 60 ml/min 01/24/20 20:44 BUN/Creatinine Ratio 23 % 01/24/20 20:44 Glucose 132 mg/dL (75-100) H 01/24/20 20:44 POC Glucose 148 (70-105) H 01/24/20 20:50 Hemoglobin A1c 4.6 % (4-6) 01/24/20 20:44 Calcium 8.6 mg/dL (8.4-10.2) 01/24/20 20:44 Total Bilirubin 0.50 mg/dL (0.1-1.2) 01/24/20 20:44 AST 19 units/L (5-40) 01/24/20 20:44 ALT 11 units/L (7-56) 01/24/20 20:44 Alkaline Phosphatase 53 units/L (35-129) 01/24/20 20:44 Total Protein 5.0 g/dL (6.3-8.2) L 01/24/20 20:44 Albumin 3.1 g/dL (3.9-5) L 01/24/20 20:44 Albumin/Globulin Ratio 1.6 % 01/24/20 20:44 Triglycerides 69 mg/dL (2-149) 01/24/20 20:44 Cholesterol 95 mg/dL (50-199) 01/24/20 20:44 LDL Cholesterol Direct 38 mg/dL (50-130) L 01/24/20 20:44 HDL Cholesterol 42 mg/dL (40-59) 01/24/20 20:44 Cholesterol/HDL Ratio 2.26 % 01/24/20 20:44 TSH 2.250 mlU/mL (0.270-4.200) 01/24/20 20:44 Urine Color Yellow (Yellow) 01/26/20 07:15 Urine Turbidity Clear (Clear) 01/26/20 07:15 Urine pH 6.0 (5.0-7.0) 01/26/20 07:15 Ur Specific [place] 1.014 (1.003-1.030) 01/26/20 07:15 Urine Protein <15 mg/dl mg/dL (Negative) 01/26/20 07:15 Urine Glucose (UA) Neg mg/dL (Negative) 01/26/20 07:15 Urine Ketones Neg mg/dL (Negative) 01/26/20 07:15 Urine Blood Sm (Negative) 01/26/20 07:15 Urine Nitrite Neg (Negative) 01/26/20 07:15 Urine Bilirubin Neg (Negative) 01/26/20 07:15 Urine Urobilinogen < 2.0 mg/dL (<2.0) 01/26/20 07:15 Ur Leukocyte Esterase Neg (Negative) 01/26/20 07:15 Urine WBC (Auto) 1.0 /HPF (0.0-6.0) 01/26/20 07:15 Urine RBC (Auto) 4.0 /HPF (0.0-6.0) 01/26/20 07:15 U Epithel Cells (Auto) < 1.0 /HPF (0-13.0) 01/26/20 07:15 Calcium Oxalate Crystal 3+ 01/26/20 07:15 Urine Mucus Few /HPF 01/26/20 07:15 Last Vital Signs Temp 97.5 F L 01/28/20 06:50 Pulse 72 01/28/20 06:50 Resp 18 01/28/20 06:50 BP 142/67 01/28/20 06:50 Pulse Ox 94 01/28/20 06:50
[2020-01-28] MEDS: risperiDONE 0.25 MG TAB PO SCH ×2 (09:32→21:10)
[2020-01-28] MEDS: METOPROLOL TARTRATE 50 MG TAB PO SCH (09:32)
[2020-01-28] MEDS: SERTRALINE 25 MG TAB PO SCH (09:32)
[2020-01-28] MEDS: traZODone 50 MG TAB PO SCH (21:09)
--- NOTE | 2020-01-29 07:46 | Discharge Summary ---
Providers - Providers Date of Admission: 01/24/20 11:42 Date of discharge: 01/29/20 Attending physician: ADAL HALL MD 01/24/20 11:37 Consult to Physician [CONS] Routine Comment: Consulting Provider: DIANA EDWARD Physician Instructions: Reason For Exam: manage medical conditions 01/25/20 08:12 Consult to Wound/ET Nurse [CONS] Routine Reason For Exam: wound eval 01/25/20 08:56 Physical Therapy Evaluation and Treat [CONS] Routine Comment: Reason For Exam: evaluate and treat Primary care physician: TELESCOPE REPAIRER Hospitalization Reason for admission: Depression, SI Admitting Diagnosis: F33.1 - MAJOR DEPRESSIVE DISORDER, RECURRENT, MODERATE Condition: Stable Hospital course: The patient was provided inpatient psychiatric treatment with safe and supportive care, medication adjustment, adverse effect monitoring, medical evaluations, medical treatments, assessment and psycho-education. The patient's mood, cognition, behavior, moral support are improved and stabilized. At the time of discharge, the patient had no endangering behavior and no debilitating adverse effects. The patient agreed on potential consequences of no treatment and gave informed consent. Disposition: DC/[place]-03 SNF W [facility] Allergies/Adverse Reactions: Allergies acetaminophen [From Tylenol] Allergy (Verified 01/24/20 09:57) Unknown NSAIDS (Non-Steroidal Anti-Inflamma Allergy (Verified 01/24/20 09:58) Unknown tramadol Allergy (Verified 01/24/20 09:58) Unknown duloxetine [From Cymbalta] Adverse Reaction (Unverified 01/24/20 10:00) Unknown ezetimibe [From Zetia] Adverse Reaction (Unverified 01/24/20 10:00) Unknown gabapentin Adverse Reaction (Unverified 01/24/20 10:00) Unknown morphine Adverse Reaction (Unverified 01/24/20 10:00) Unknown simvastatin [From Zocor] Adverse Reaction (Unverified 01/24/20 10:00) Unknown Mlcrfmu-Aea-Qdn Reductase Inhibitor Adverse Reaction (Unverified 01/24/20 10:00) Unknown Vital Signs: Last Vital Signs Temp 97.8 F 01/28/20 18:43 Pulse 65 01/28/20 18:43 Resp 18 01/28/20 18:43 BP 124/56 01/28/20 18:43 Pulse Ox 97 01/28/20 18:43 Last Lab: Laboratory Last Values WBC 3.4 K/mm3 (4.5-11.0) L 01/24/20 20:44 RBC 2.82 M/mm3 (3.65-5.03) L 01/24/20 20:44 Hgb 9.9 gm/dl (11.8-15.2) L 01/24/20 20:44 Hct 29.2 % (35.5-45.6) L 01/24/20 20:44 MCV 104 fl (84-94) H 01/24/20 20:44 MCH 35 pg (28-32) H 01/24/20 20:44 MCHC 34 % (32-34) 01/24/20 20:44 RDW 19.8 % (13.2-15.2) H 01/24/20 20:44 Plt Count 273 K/mm3 (140-440) 01/24/20 20:44 Rich % (Auto) White Metal Caster 01/24/20 20:44 Add Manual Diff Complete 01/24/20 20:44 Total Counted 100 01/24/20 20:44 Seg Neuts % (Manual) 65.0 % (40.0-70.0) 01/24/20 20:44 Band Neutrophils % 2.0 % 01/24/20 20:44 Lymphocytes % (Manual) 20.0 % (13.4-35.0) 01/24/20 20:44 Reactive Lymphs % (Man) 0 % 01/24/20 20:44 Monocytes % (Manual) 10.0 % (0.0-7.3) H 01/24/20 20:44 Eosinophils % (Manual) 3.0 % (0.0-4.3) 01/24/20 20:44 Basophils % (Manual) 0 % (0.0-1.8) 01/24/20 20:44 Metamyelocytes % 0 % 01/24/20 20:44 Myelocytes % 0 % 01/24/20 20:44 Promyelocytes % 0 % 01/24/20 20:44 Blast Cells % 0 % 01/24/20 20:44 Nucleated RBC % Not Reportable 01/24/20 20:44 Seg Neutrophils # Man 2.2 K/mm3 (1.8-7.7) 01/24/20 20:44 Band Neutrophils # 0.1 K/mm3 01/24/20 20:44 Lymphocytes # (Manual) 0.7 K/mm3 (1.2-5.4) L 01/24/20 20:44 Abs React Lymphs (Man) 0.0 K/mm3 01/24/20 20:44 Monocytes # (Manual) 0.3 K/mm3 (0.0-0.8) 01/24/20 20:44 Eosinophils # (Manual) 0.1 K/mm3 (0.0-0.4) 01/24/20 20:44 Basophils # (Manual) 0.0 K/mm3 (0.0-0.1) 01/24/20 20:44 Metamyelocytes # 0.0 K/mm3 01/24/20 20:44 Myelocytes # 0.0 K/mm3 01/24/20 20:44 Promyelocytes # 0.0 K/mm3 01/24/20 20:44 Blast Cells # 0.0 K/mm3 01/24/20 20:44 WBC Morphology Not Reportable 01/24/20 20:44 Hypersegmented Neuts Not Reportable 01/24/20 20:44 Hyposegmented Neuts Not Reportable 01/24/20 20:44 Hypogranular Neuts Not Reportable 01/24/20 20:44 Smudge Cells Not Reportable 01/24/20 20:44 Toxic Granulation Not Reportable 01/24/20 20:44 Toxic Vacuolation Not Reportable 01/24/20 20:44 Dohle Bodies Not Reportable 01/24/20 20:44 Pelger-Huet Anomaly Not Reportable 01/24/20 20:44 Monika Rods Not Reportable 01/24/20 20:44 Platelet Estimate Consistent w auto 01/24/20 20:44 Clumped Platelets Not Reportable 01/24/20 20:44 Plt Clumps, EDTA Not Reportable 01/24/20 20:44 Large Platelets Not Reportable 01/24/20 20:44 Giant Platelets Not Reportable 01/24/20 20:44 Platelet Satelliting Not Reportable 01/24/20 20:44 Plt Morphology Comment Not Reportable 01/24/20 20:44 RBC Morphology Not Reportable 01/24/20 20:44 Dimorphic RBCs Not Reportable 01/24/20 20:44 Polychromasia Not Reportable 01/24/20 20:44 Hypochromasia Not Reportable 01/24/20 20:44 Poikilocytosis Not Reportable 01/24/20 20:44 Anisocytosis 1+ 01/24/20 20:44 Microcytosis Not Reportable 01/24/20 20:44 Macrocytosis Not Reportable 01/24/20 20:44 Spherocytes Not Reportable 01/24/20 20:44 Pappenheimer Bodies Not Reportable 01/24/20 20:44 Sickle Cells Not Reportable 01/24/20 20:44 Target Cells Not Reportable 01/24/20 20:44 Tear Drop Cells Not Reportable 01/24/20 20:44 Ovalocytes Not Reportable 01/24/20 20:44 Helmet Cells Not Reportable 01/24/20 20:44 [place] Bodies Not Reportable 01/24/20 20:44 [place] Rings Not Reportable 01/24/20 20:44 [place] Cells Not Reportable 01/24/20 20:44 Bite Cells Not Reportable 01/24/20 20:44 Crenated Cell Not Reportable 01/24/20 20:44 Elliptocytes Not Reportable 01/24/20 20:44 Acanthocytes (Spur) Not Reportable 01/24/20 20:44 Rouleaux Not Reportable 01/24/20 20:44 Hemoglobin C Crystals Not Reportable 01/24/20 20:44 Schistocytes Not Reportable 01/24/20 20:44 Malaria parasites Not Reportable 01/24/20 20:44 Chema Bodies Not Reportable 01/24/20 20:44 Hem Pathologist Commnt No 01/24/20 20:44 Sodium 136 mmol/L (137-145) L 01/24/20 20:44 Potassium 3.8 mmol/L (3.6-5.0) 01/24/20 20:44 Chloride 99.7 mmol/L (98-107) 01/24/20 20:44 Carbon Dioxide 26 mmol/L (22-30) 01/24/20 20:44 Anion Gap 14 mmol/L 01/24/20 20:44 BUN 21 mg/dL (9-20) H 01/24/20 20:44 Creatinine 0.9 mg/dL (0.8-1.5) 01/24/20 20:44 Estimated GFR > 60 ml/min 01/24/20 20:44 BUN/Creatinine Ratio 23 % 01/24/20 20:44 Glucose 132 mg/dL (75-100) H 01/24/20 20:44 POC Glucose 148 (70-105) H 01/24/20 20:50 Hemoglobin A1c 4.6 % (4-6) 01/24/20 20:44 Calcium 8.6 mg/dL (8.4-10.2) 01/24/20 20:44 Total Bilirubin 0.50 mg/dL (0.1-1.2) 01/24/20 20:44 AST 19 units/L (5-40) 01/24/20 20:44 ALT 11 units/L (7-56) 01/24/20 20:44 Alkaline Phosphatase 53 units/L (35-129) 01/24/20 20:44 Total Protein 5.0 g/dL (6.3-8.2) L 01/24/20 20:44 Albumin 3.1 g/dL (3.9-5) L 01/24/20 20:44 Albumin/Globulin Ratio 1.6 % 01/24/20 20:44 Triglycerides 69 mg/dL (2-149) 01/24/20 20:44 Cholesterol 95 mg/dL (50-199) 01/24/20 20:44 LDL Cholesterol Direct 38 mg/dL (50-130) L 01/24/20 20:44 HDL Cholesterol 42 mg/dL (40-59) 01/24/20 20:44 Cholesterol/HDL Ratio 2.26 % 01/24/20 20:44 TSH 2.250 mlU/mL (0.270-4.200) 01/24/20 20:44 Urine Color Yellow (Yellow) 01/26/20 07:15 Urine Turbidity Clear (Clear) 01/26/20 07:15 Urine pH 6.0 (5.0-7.0) 01/26/20 07:15 Ur Specific [place] 1.014 (1.003-1.030) 01/26/20 07:15 Urine Protein <15 mg/dl mg/dL (Negative) 01/26/20 07:15 Urine Glucose (UA) Neg mg/dL (Negative) 01/26/20 07:15 Urine Ketones Neg mg/dL (Negative) 01/26/20 07:15 Urine Blood Sm (Negative) 01/26/20 07:15 Urine Nitrite Neg (Negative) 01/26/20 07:15 Urine Bilirubin Neg (Negative) 01/26/20 07:15 Urine Urobilinogen < 2.0 mg/dL (<2.0) 01/26/20 07:15 Ur Leukocyte Esterase Neg (Negative) 01/26/20 07:15 Urine WBC (Auto) 1.0 /HPF (0.0-6.0) 01/26/20 07:15 Urine RBC (Auto) 4.0 /HPF (0.0-6.0) 01/26/20 07:15 U Epithel Cells (Auto) < 1.0 /HPF (0-13.0) 01/26/20 07:15 Calcium Oxalate Crystal 3+ 01/26/20 07:15 Urine Mucus Few /HPF 01/26/20 07:15 Core Measure Documentation - Palliative Care Palliative Care/ Comfort Measures: Not Applicable - Core Measures Any of the following diagnoses?: none Exam - Constitutional Vitals: Temp Pulse Resp BP Pulse Ox 97.8 F 65 18 124/56 97 01/28/20 18:43 01/28/20 18:43 01/28/20 18:43 01/28/20 18:43 01/28/20 18:43 General appearance: Present: no acute distress - EENT Eyes: Present: PERRL, EOM intact ENT: hearing intact, clear oral mucosa - Neck Neck: Present: normal ROM - Respiratory Respiratory effort: normal Plan Activity: advance as tolerated Weight Bearing Status: Weight Bear as Tolerated Care Plan Goals: Maintain good and stable mental health Plan of Treatment: The patient should be compliant with medications, not to use drugs, and not to drink alcohol. The patient understands that if suicidal ideas, homicidal ideas or any endangering feeling arise, the patient should seek assistance including, but not limited to crisis hotline, and emergency room. Assessment: Major Depressive Disorder The patient denies any SI/HI or hallucinations of any kind at time of discharge. Follow up with: PRIMARY CARE, [Primary Care Provider] - 7 Days Prescriptions: traZODone [Desyrel] 50 mg PO QHS #30 tablet Melatonin [Melatonin 5MG TAB] 5 mg PO QHS PRN #30 tablet PRN Reason: Sleep Dronabinol 7 drops PO Q4HR PRN #1 PRN Reason: nausea/vomiting Losartan/Hydrochlorothiazide 25 - 100 mg PO DAILY #30 Metoprolol 50 mg PO DAILY #30 risperiDONE [RisperDAL] 0.25 mg PO BID #60 tablet Sertraline [Zoloft] 25 mg PO QDAY #30 tablet
--- NOTE | 2020-01-29 09:23 | XRay Report ---
CHEST 1 VIEW INDICATION: r/o TB. COMPARISON: None FINDINGS: Support devices: None. Heart: Heart size is normal. The aorta is mildly ectatic but well defined. Lungs/Pleura: The left hemidiaphragm is obscured by left basilar atelectasis or small left pleural ef fusion. The lungs are clear otherwise. No pneumothorax. Additional findings: None. IMPRESSION: Small left pleural effusion or left basilar atelectasis. Signer Name: Pratik Herrmann Jr, MD Signed: 01/29/2020 9:19 AM Workstation Name: [id number]
[2020-01-29 09:37] VITALS: BP 114/43
[2020-01-29] MEDS: risperiDONE 0.25 MG TAB PO SCH (10:20)
[2020-01-29] MEDS: SERTRALINE 25 MG TAB PO SCH (10:30)
[2020-01-29] MEDS: METOPROLOL TARTRATE 50 MG TAB PO SCH (12:55)
[2020-01-29] MEDS: oxyCODONE 5 MG TAB PO PRN (15:53)
== END 2020-01-29 16:10 | DRG 885 ==
LOC: UNDOADMIN 08:51 → 3A 08:51 → 5A 11:42
PROVIDERS: ADMIT Psychiatry & Neurology Psychiatry; ATTEND Psychiatry & Neurology Psychiatry
DX: F33.1 Major depressive disorder, recurrent, moderate (principal); F10.20 Alcohol dependence, uncomplicated; Y90.9 Presence of alcohol in blood, level not specified; D63.8 Anemia in other chronic diseases classified elsewhere; N40.0 Benign prostatic hyperplasia without lower urinary tract symptoms; I10 Essential (primary) hypertension; G47.30 Sleep apnea, unspecified; M19.90 Unspecified osteoarthritis, unspecified site; E78.5 Hyperlipidemia, unspecified; Z88.6 Allergy status to analgesic agent; Z88.8 Allergy status to other drugs, medicaments and biological substances
CPT/HCPCS: 36415; 71045; 80053; 80061; 81001; 82962; 83036; 84443; 85007; 85025; G0378; U0003-CS